=== PATIENT | male | born 1990 | race Caucasian/White ===

== ENCOUNTER 2018-03-12 10:46 | Emergency (ER) | payer BC, OTHER ==
--- NOTE | 2018-03-12 11:04 | CPEKG ---
Heart Rate: 58 RR Interval: 1034 P-R Interval: 148 QRSD Interval: 104 QT Interval: 380 QTC Interval: 374 P Lafayette: 47 QRS [place]: 15 T Wave Lafayette: 33 EKG Severity - NORMAL ECG - EKG Impression: SINUS RHYTHM Electronically Signed By: Judith La 12-Mar-2018 18:42:42
[2018-03-12 11:38] LABS: PLATELET COUNT 368 10^3/uL (150-400)
[2018-03-12] MEDS ORDERED: IOPAMIDOL (ISOVUE 370) 100 ML BTL IV ONE (13:23)
--- NOTE | 2018-03-12 14:11 | GCON ---
[f rep st] CONSULTATION CARDIOLOGY CONSULTATION DATE OF CONSULTATION: 03/12/2018 INDICATIONS: Chest pain. HISTORY OF PRESENT ILLNESS: The patient is a pleasant 27-year-old male seen in the emergency departm ent for consultation with a history of chest discomfort. 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 He has family here in [place], [place]. He was i n [place] last week. He had been in [place] for only a few days working. He developed a severe upper resp iratory infection associated with cough and nonproductive sputum. He was having intermittent twinges of chest discomfort. Because of this, he went to a local clinic there where his chest pain abruptly became worse. He was seen in the local clinic there with an electrocardiogram that demonstrated sin us rhythm with diffuse concave upward ST elevations in the inferior and lateral leads. A right-sided EKG, which is presumed to be a posterior ECG confirmed these findings; however, it demonstrated ante rior ST depressions with poor R-wave progression. Again, this is presumed to be a posterior ECG. [facility] local clinic there referred him to the [facility] where he was hospitalized for about 4 days. During that hospitalization, he was treated for what was presumed to be an ST-elevation myocardial in [facility]. His initial troponin on arrival was elevated at 0.928. Daily troponins were drawn. The , his troponin was 1.02, followed by 0.857, 1.050, and subsequently 0.644. He had an ech ocardiogram. I reviewed the report and the images. His echocardiogram was essentially normal. He a lso had a chest x-ray. The chest x-ray was largely normal with the exception of comments being made that he had enlarged right hilum in the pulmonary artery. He signed out AMA after about 4 days in the hospital and decided to come back home. He came to the e mergency department for a second opinion. He states that he currently feels well. He has never had similar symptoms in the past. He denies tobacco use, drug use, including cocaine use and excessive c affeine use. He does take Adderall for attention deficit hyperactivity disorder; however, has not ta caprice this medication for the last 3 weeks. There is no history of DVT or PE, although he did have rec ent extensive travel. As noted above, he did suffer a significant upper respiratory infection that p receded the development of this discomfort. PAST MEDICAL HISTORY: He has a history of attention deficit hyperactivity disorder and takes Adderal l occasionally. MEDICATIONS: Currently, he is not on any prescription medications. PAST SURGICAL HISTORY: None. FAMILY HISTORY: Negative for early atherosclerosis. 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 He is here today with his father who lives in [place], [place]. He uses no drugs. He does drink alcohol occasionally, al though none in the last several weeks. He is very active individual. He is not . He does no t smoke. REVIEW OF SYSTEMS: A full 10-point review of systems was performed and is otherwise negative. PHYSICAL EXAMINATION: VITAL SIGNS: Blood pressure is 127/74, heart rate is 60, room air saturations 99%. He is afebrile. GENERAL: He is a healthy white male in no acute distress. HEENT: Normoceph alic, atraumatic. He has anicteric sclerae. Oropharynx unremarkable. NECK: Carotids 2+ bilaterall y with no bruits. He has no jugular venous distention, adenopathy, or thyromegaly. RESPIRATORY: He is breathing easy, resting comfortably, using no accessory muscles on auscultation. Has clear lung gupta bilaterally. CARDIAC: Precordial inspection is unremarkable. PMI is nondisplaced. On auscu ltation, he has a regular rate and rhythm without murmurs, gallops, or rubs. ABDOMEN: Soft and nont kristin. He has normoactive bowel sounds. He has no masses or hepatosplenomegaly. EXTREMITIES: Warm and well perfused. VASCULATURE: He has 2+ radial, dorsal pedal, and posterior tibial pulses. DATABASE: His ECG today demonstrates sinus bradycardia at 58 beats per minute. He has very minor re sidual J-point elevation inferiorly and laterally. He has no T-wave inversions. White blood cell count is 7.26, hematocrit 44.3, platelet count 368,000. D-dimer is less than 0.27. Troponin is 0.053. Sodium 141, potassium 4.5, BUN 8, creatinine 0.7. Other data: I did review approximately 18 pages of data from his previous hospitalizations improved. Most of it is summarized above. A chest x-ray as noted above did comment that he had enlarged right hilum. IMPRESSION: The patient is 27 years old. About 6 days ago when he was in [place], he developed acute c hest discomfort. His symptoms came on the heels of a several day history of a fairly significant upp er respiratory infection. He was hospitalized with elevated troponins and abnormal electrocardiogram indicating inferolateral ST elevations with a concave upward appearance. Overall, I think his clini britta history is most consistent with pericarditis. Apparently, he was told that he may have had a hea rt attack or potentially coronary vasospasm. I do not think that this is very likely. He certainly does not have any predisposing factors that would potentially cause coronary vasospasm, specifically, not been taking his Adderall. He does not use cocaine or other stimulants and is does not use tobac co. Additionally, his EKG does not show any evolutionary changes consistent with transient myocardia l infarction. Finally, his troponins were relatively flat and really did not demonstrate a pattern c onsistent with coronary vasospasm. With his recent travel and chest x-ray indicating a full hilum on the right, I think it is fairly reasonable to perform a CT of the chest to rule out pulmonary emboli sm, although I think this is low risk overall. I did prescribe colchicine 0.6 mg twice daily. I kathy l have him follow up with me in the office in the next 2-3 weeks. This was discussed with he and his father at length. They are in agreement with this plan. /[id number]/MODL
--- NOTE | 2018-03-12 14:20 | EDPHY ---
H & P Smoking Status: Current every day smoker Time Seen by Provider: 03/12/18 11:20 HPI/ROS: CHIEF COMPLAINT: Chest pain now resolved HISTORY OF PRESENT ILLNESS: 27-year-old male presents to the emergency department with his father complaining of chest pain that was present 03/06/2018 and lasted for about 45 min and is now resolved. The patient states that he was working in [place] and developed gastroenteritis where he had 2 days of vomiting and diarrhea. That resolved and then the patient subsequently developed URI symptoms including cough, nasal congestion and sore throat. He was at a [facility] in [place] and then developed sudden onset of left anterior chest pain that lasted approximately 45 min. He had EKG and laboratory studies and was told that he had a heart attack. He apparently signed out against medical advice. He was given multiple medications and he flew home to [place] and was told see a aircraft lay out worker. The patient states that the chest pain is completely resolved. His URI symptoms have resolved. He denies chest pain or difficulty breathing. Denies abdominal pain. Denies vomiting. No neck or back pain. REVIEW OF SYSTEMS: Constitutional: No fever, no chills. Eyes: No double or blurry vision. ENT: No sore throat. Respiratory: No cough, no shortness of breath. Cardiac: Chest pain now resolved. Gastrointestinal: No abdominal pain, vomiting or diarrhea. Genitourinary: No dysuria. Musculoskeletal: No neck or back pain. Skin: No rashes. Neurological: No headache. 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 Father at bedside. Vital signs are stable.. Eyes: Pupils equal and round. Extraocular motions are all intact. ENT: Mouth: Mucous membranes moist Respiratory: No wheezing, rhonchi, or rales, lungs are clear to auscultation Cardiovascular: Regular rate and rhythm Gastrointestinal: Abdomen is soft and nontender, no masses, no rebound or guarding, bowel sounds normal Neurological: Alert and oriented x 3, cranial nerves II through XII grossly intac Skin: Warm and dry, no rashes Musculoskeletal: Nontender to palpate along the cervical, thoracic or lumbar spine. Neck is supple Extremities: Full range of motion and no peripheral edema Psychiatric: Patient is oriented X 3, there is no agitation (Batsheva Juarez) Constitutional: Initial Vital Signs Temperature (C) 36.8 C 03/12/18 10:51 Heart Rate 58 L 03/12/18 10:51 Respiratory Rate 16 03/12/18 10:51 Blood Pressure 124/65 H 03/12/18 10:51 O2 Sat (%) 96 03/12/18 10:51 O2 Delivery Mode Room Air Allergies/Adverse Reactions: No Known Allergies Allergy (Unverified 03/12/18 10:51) Home Medications: Medication Instructions Recorded NO HOME MEDS 12/17/10 Colchicine 0.6 mg PO BID #20 tablet 03/12/18 Medical Decision Making - Diagnostics Imaging: Discussed imaging studies w/ halfway house counselor Radiologist ED Course/Re-evaluation: The case was discussed with Dr. Jacobo Chen, secondary supervising physician, who did not directly evaluate the patient but agrees with treatment and plan. Case was discussed with Dr. John Green, on-call aircraft lay out worker, who came to evaluate the patient. The patient brought a DVD of his echo with him that he had improved and this was reviewed by the aircraft lay out worker. Laboratory studies today reveal troponin of 0.053. The patient had elevated troponin levels in [place] over 1. Dr. John Green recommended obtaining CT angiogram to rule out pulmonary embolism. This was negative. Dr. John Green recommended discharge home with oral colchicine 0.6 mg twice daily and would see him in the office in follow-up. Dr. John Green felt that he likely had symptoms of pericarditis. (Batsheva Juarez) I did not see this patient while he was in the emergency department. However his care was discussed with the PA while the patient was in the department. I agree with treatment plan and management (Jacobo Chen) Differential Diagnosis: Chest pain including but not limited to myocardial ischemia, pulmonary embolus, chest wall pain, pleural inflammation and pulmonary infectious causes. (Batsheva Juarez) - Data Points Laboratory Results: Laboratory Results 03/12/18 11:04 03/12/18 11:04 Point of Care Test Results: Chemistry 03/12/18 11:07 POC Troponin I 0.04 ng/mL ng/mL (0.00-0.08) Departure - Departure Disposition: Home, Routine, Self-Care Clinical Impression: Chest pain Condition: Good Instructions: Chest Pain (ED) Additional Instructions: Colchicine 0.6 mg twice daily as directed. Follow up with Dr. Green, [facility], next week to recheck. Referrals: John Green MD [Medical Doctor] - 2-3 days without fail (Stock Mixer on- call) Prescriptions: Colchicine 0.6 mg PO BID #20 tablet
[2018-03-12 14:25] VITALS: BP 125/81
== END 2018-03-12 14:33 | disposition home or self-care (01) ==
DX: R07.9 Chest pain, unspecified (principal); F17.200 Nicotine dependence, unspecified, uncomplicated
CPT/HCPCS: 84484-PO; Q9967